=== PATIENT | female | born 1995 | race Caucasian/White ===

== ENCOUNTER → 2017-08-19 | Outpatient (CLI) | payer MEDICAID, OTHER, SELFPAY ==
[2017-08-19 13:36] LABS: BASO % 0.6 % (0.0-1.0); EOS # 0.1 10^3/uL (0.0-0.50); EOS % 1.7 % (0.0-3.0); HEMATOCRIT 39.3 % (36.0-47.0); HEMOGLOBIN 13.5 g/dl (12.0-15.5); IMMATURE GRANULOCYTE % 0.3 % (0-3.0); LYMPH # 1.9 10^3/uL (1.5-6.5); LYMPH % 27.2 % (24.0-44.0); MEAN CORPUSCULAR HEMOGLOBIN 29.2 pg (27.0-33.0); MEAN CORPUSCULAR HGB CONC 34.4 g/dl (32.0-36.5); MEAN CORPUSCULAR VOLUME 85.1 fl (80.0-96.0); MONO # 0.6 10^3/uL (0.0-0.8); MONO % 8.6 % (0.0-5.0); NEUTROPHILS # 4.3 10^3/uL (1.8-7.7); NEUTROPHILS % 61.6 % (36.0-66.0); PLATELET COUNT, AUTOMATED 245 10^3/uL (150-450); RED BLOOD COUNT 4.62 10^6/uL (4.00-5.40); RED CELL DISTRIBUTION WIDTH 12.5 % (11.5-14.5)
[2017-08-19 13:59] LABS: RUBELLA IgG QUALITATIVE IMMUNE (IMMUNE)
[2017-08-19 14:01] LABS: HBsAg Prenatal NEGATIVE (NEGATIVE)
[2017-08-19 14:27] LABS: HEPATITIS C VIRUS ABY INDEX 0.1 INDEX (<0.8)
[2017-08-19 14:28] LABS: HIV 1&2 SCREEN CENTAUR NEGATIVE (NEGATIVE)
[2017-08-19 15:14] LABS: CHLAMYDIA DNA AMPLIFICATION NEGATIVE (NEGATIVE); GC DNA AMPLIFICATION NEGATIVE (NEGATIVE)
== END ==
LOC: M SMT 09:20
DX: Z34.81 Encounter for supervision of other normal pregnancy, first trimester (principal); Z3A.11 11 weeks gestation of pregnancy
CPT/HCPCS: 86762

== ENCOUNTER → 2017-10-04 | Outpatient (CLI) | payer MEDICAID | LOC: M SMT 12:54 | DX: Z34.82 Encounter for supervision of other normal pregnancy, second trimester (principal) | CPT/HCPCS: 76811 ==

== ENCOUNTER → 2017-11-02 | Outpatient (CLI) | payer OTHER | LOC: M SMT 14:27 | DX: Z34.82 Encounter for supervision of other normal pregnancy, second trimester (principal); Z36.89 Encounter for other specified antenatal screening; Z3A.22 22 weeks gestation of pregnancy | CPT/HCPCS: 76816 ==

== ENCOUNTER → 2017-11-30 | Outpatient (CLI) | payer OTHER ==
[2017-11-30 18:41] LABS: BASO % 0.2 % (0.0-1.0); EOS # 0.1 10^3/uL (0.0-0.50); EOS % 1.2 % (0.0-3.0); HEMATOCRIT 34.8 % (36.0-47.0); HEMOGLOBIN 11.6 g/dl (12.0-15.5); IMMATURE GRANULOCYTE % 0.5 % (0-3.0); LYMPH # 1.6 10^3/uL (1.5-6.5); LYMPH % 19.9 % (24.0-44.0); MEAN CORPUSCULAR HEMOGLOBIN 28.8 pg (27.0-33.0); MEAN CORPUSCULAR HGB CONC 33.3 g/dl (32.0-36.5); MEAN CORPUSCULAR VOLUME 86.4 fl (80.0-96.0); MONO # 0.6 10^3/uL (0.0-0.8); MONO % 7.7 % (0.0-5.0); NEUTROPHILS # 5.8 10^3/uL (1.8-7.7); NEUTROPHILS % 70.5 % (36.0-66.0); PLATELET COUNT, AUTOMATED 231 10^3/uL (150-450); RED BLOOD COUNT 4.03 10^6/uL (4.00-5.40); RED CELL DISTRIBUTION WIDTH 13.1 % (11.5-14.5); WHITE BLOOD COUNT 8.2 10^3/uL (4.0-10.0)
[2017-11-30 19:05] LABS: GLUCOSE CHALLENGE TEST 1 HOUR 98 MG/DL (LESS THAN 140)
== END ==
LOC: M SMT 13:10
DX: Z34.82 Encounter for supervision of other normal pregnancy, second trimester (principal); Z36.89 Encounter for other specified antenatal screening
CPT/HCPCS: 82950

== ENCOUNTER → 2018-02-06 | Outpatient (REF) | payer MEDICAID | LOC: M LAB REF 17:28 | DX: Z34.03 Encounter for supervision of normal first pregnancy, third trimester (principal); Z36.85 Encounter for antenatal screening for Streptococcus B | CPT/HCPCS: 87081 ==

== ENCOUNTER 2018-03-06 15:25 | Inpatient (IN) | payer OTHER, MEDICAID ==
[2018-03-06] MEDS ORDERED: LR 1,000 ML IV (16:08)
[2018-03-06 17:03] LABS: HEMATOCRIT 36.6 % (36.0-47.0); HEMOGLOBIN 12.2 g/dl (12.0-15.5); MEAN CORPUSCULAR HEMOGLOBIN 26.9 pg (27.0-33.0); MEAN CORPUSCULAR HGB CONC 33.3 g/dl (32.0-36.5); MEAN CORPUSCULAR VOLUME 80.6 fl (80.0-96.0); PLATELET COUNT, AUTOMATED 292 10^3/uL (150-450); RED BLOOD COUNT 4.54 10^6/uL (4.00-5.40); RED CELL DISTRIBUTION WIDTH 13.9 % (11.5-14.5); WHITE BLOOD COUNT 10.6 10^3/uL (4.0-10.0)
[2018-03-06 17:27] LABS: ALT/SGPT 16 U/L (12-78); AST/SGOT 17 U/L (7-37); BILIRUBIN,TOTAL 0.2 MG/DL (0.2-1.0); CREATININE FOR GFR 0.53 MG/DL (0.55-1.30); GLOMERULAR FILTRATION RATE > 60.0 (>60); LDH LACTATE DEHYDROGENASE 196 U/L (84-246); URIC ACID 3.8 MG/DL (2.6-6.0)
[2018-03-06] MEDS: OXYTOCIN DRIP 30 UNITS in APPROPRIATE DILUENT 1 EA IV (17:33)
[2018-03-06] MEDS: LACTATED RINGER'S 1000 ML IV (17:33)
[2018-03-06 17:58] LABS: TOTAL PROTEIN,RANDOM URINE 13.7 MG/DL (0.0-12.0)
[2018-03-06 17:58] LABS: CREATININE,RANDOM URINE 97.7 MG/DL
[2018-03-06] MEDS: LR 1,000 ML IV (22:13)
[2018-03-07] MEDS: BUTORPHANOL 2 MG/ML INJ (J0595) IV (03:25)
[2018-03-07] MEDS: PROMETHAZINE INJ 25 MG/ML VIAL (J2550) IV (03:25)
[2018-03-07] MEDS ORDERED: MEASLES,MUMPS,RUBELLA VACCINE INJ (MMR-II) (90707) SC (07:00)
[2018-03-07] MEDS ORDERED: ANUSOL HC CREAM 30GM TOP (07:00)
[2018-03-07] MEDS ORDERED: DOCUSATE SODIUM 100 MG CAP PO (07:00)
[2018-03-07] MEDS ORDERED: IBUPROFEN 800 MG TAB PO (07:00)
[2018-03-07] MEDS ORDERED: METHYLERGONOVINE MALEATE 0.2 MG TAB PO (07:00)
[2018-03-07] MEDS ORDERED: DIBUCAINE 1% OINTMENT 30GM TOP (07:00)
[2018-03-07] MEDS ORDERED: RHOGAM 300 MCG (1500 IU) INJ (J2790) IM (07:00)
[2018-03-07] MEDS ORDERED: ACETAMINOPHEN 500 MG TAB PO (07:00)
[2018-03-07] MEDS: LIDOCAINE 1% MDV 20ML VIAL INFIL (07:00)
[2018-03-07] MEDS ORDERED: MOM 30ML SUSPENSION UDC PO (07:00)
[2018-03-07] MEDS: PRENATAL VITAMINS CHEWABLE TABLET PO (10:37)
[2018-03-08] MEDS: PRENATAL VITAMINS CHEWABLE TABLET PO (08:32)
[2018-03-09] MEDS: PRENATAL VITAMINS CHEWABLE TABLET PO (08:51)
== END 2018-03-09 10:35 | disposition home or self-care (01) | DRG 560 ==
LOC: M LDI 15:25 → M OBS 03-07 09:05
PROVIDERS: Advanced Practice Midwife
PROC: 10907ZC Drainage of Amniotic Fluid, Therapeutic from Products of Conception, Via Natural or Artificial Opening (ICD-10-PCS; 2018-03-06)
PROC: 3E033VJ Introduction of Other Hormone into Peripheral Vein, Percutaneous Approach (ICD-10-PCS; 2018-03-06)
PROC: 10E0XZZ Delivery of Products of Conception, External Approach (ICD-10-PCS; principal; 2018-03-07)
PROC: 0HQ9XZZ Repair Perineum Skin, External Approach (ICD-10-PCS; 2018-03-07)
DX: O13.4 Gestational [pregnancy-induced] hypertension without significant proteinuria, complicating childbirth (principal); O48.0 Post-term pregnancy; Z37.0 Single live birth; Z87.891 Personal history of nicotine dependence; Z3A.40 40 weeks gestation of pregnancy; O69.82X0 Labor and delivery complicated by other cord entanglement, without compression, not applicable or unspecified; O70.0 First degree perineal laceration during delivery

== ENCOUNTER → 2018-07-17 | Outpatient (REF) | payer OTHER, MEDICAID ==
[~2018-07-17] MED LIST: FIOR1CAP PO; IBUP-1114 PO; MAPA500T2 PO; PRENTAB9 PO
== END ==
LOC: M LAB REF 17:21
PROVIDERS: ATTEND Advanced Practice Midwife
DX: Z12.4 Encounter for screening for malignant neoplasm of cervix (principal)

== ENCOUNTER 2021-03-09 01:15 | Emergency (ER) | payer MEDICAID, OTHER ==
[2021-03-09 01:16] VITALS: BP 135/84
[2021-03-09] MEDS ORDERED: LEXA1TAB PO (01:36)
[2021-03-09 02:31] LABS: RSV AMPLIFICATION NEGATIVE (NEGATIVE)
== END 2021-03-09 05:57 | disposition home or self-care (01) ==
LOC: M ED 01:15
DX: U07.1 COVID-19 (principal); F41.1 Generalized anxiety disorder; F32.A Depression, unspecified; F17.200 Nicotine dependence, unspecified, uncomplicated; Z88.1 Allergy status to other antibiotic agents; Z79.899 Other long term (current) drug therapy

== ENCOUNTER → 2022-06-03 | Outpatient (CLI) | payer OTHER ==
[~2022-06-03] MED LIST changes: +LEXA1TAB PO
== END ==
LOC: M RAD 15:42
PROVIDERS: ATTEND Advanced Practice Midwife
DX: Z34.82 Encounter for supervision of other normal pregnancy, second trimester (principal); Z3A.14 14 weeks gestation of pregnancy

== ENCOUNTER → 2022-06-21 | Outpatient (CLI) | payer OTHER ==
[2022-06-21 14:57] LABS: HEMATOCRIT 38.3 % (36.0-47.0); HEMOGLOBIN 12.7 g/dl (12.0-15.5); MEAN CORPUSCULAR HEMOGLOBIN 29.1 pg (27.0-33.0); MEAN CORPUSCULAR HGB CONC 33.2 g/dl (32.0-36.5); MEAN CORPUSCULAR VOLUME 87.8 fl (80.0-96.0); PLATELET COUNT, AUTOMATED 227 10^3/uL (150-450); RED BLOOD COUNT 4.36 10^6/uL (4.00-5.40); WHITE BLOOD COUNT 7.7 10^3/uL (4.0-10.0)
[2022-06-21 15:37] LABS: HIV 1&2 SCREEN CENTAUR NEGATIVE (NEGATIVE)
[2022-06-21 15:46] LABS: HEPATITIS C VIRUS ABY INDEX < 0.0 INDEX (<0.8)
[2022-06-21 16:54] LABS: GC DNA AMPLIFICATION NEGATIVE (NEGATIVE)
== END ==
LOC: M PLALAB 10:07
PROVIDERS: ATTEND Advanced Practice Midwife
DX: Z34.82 Encounter for supervision of other normal pregnancy, second trimester (principal)

== ENCOUNTER → 2022-07-08 | Outpatient (CLI) | payer OTHER | LOC: M WHC 11:27 | PROVIDERS: ATTEND Obstetrics & Gynecology | DX: Z34.92 Encounter for supervision of normal pregnancy, unspecified, second trimester (principal); Z3A.19 19 weeks gestation of pregnancy ==

== ENCOUNTER → 2022-08-18 | Outpatient (CLI) | payer OTHER | LOC: M WHC 07:55 | PROVIDERS: ATTEND Advanced Practice Midwife | DX: Z34.92 Encounter for supervision of normal pregnancy, unspecified, second trimester (principal); Z3A.25 25 weeks gestation of pregnancy ==

== ENCOUNTER → 2022-09-09 | Outpatient (CLI) | payer OTHER ==
[2022-09-09 15:10] LABS: HEMATOCRIT 33.3 % (36.0-47.0); HEMOGLOBIN 10.8 g/dl (12.0-15.5); MEAN CORPUSCULAR HGB CONC 32.4 g/dl (32.0-36.5); MEAN CORPUSCULAR VOLUME 89.3 fl (80.0-96.0); PLATELET COUNT, AUTOMATED 219 10^3/uL (150-450); RED BLOOD COUNT 3.73 10^6/uL (4.00-5.40); WHITE BLOOD COUNT 7.4 10^3/uL (4.0-10.0)
== END ==
LOC: M PLALAB 09:44
PROVIDERS: ATTEND Advanced Practice Midwife
DX: Z34.92 Encounter for supervision of normal pregnancy, unspecified, second trimester (principal)

== ENCOUNTER → 2022-10-29 | Outpatient (REF) | payer OTHER | LOC: M SFHCWAGY 13:01 | PROVIDERS: ATTEND Specialist | DX: Z36.85 Encounter for antenatal screening for Streptococcus B (principal) ==

== ENCOUNTER 2022-11-24 00:38 | Inpatient (IN) | payer OTHER ==
[~2022-11-24] VITALS: Ht 167.6 cm; Wt 95.3 kg
[2022-11-24] MEDS ORDERED: LIDOCAINE 1% MDV 20ML VIAL INFIL PRN (01:30)
[2022-11-24] MEDS ORDERED: OXYTOCIN DRIP 30 UNITS in IV 1 EA IV PRN (01:30)
[2022-11-24 01:53] LABS: HEMATOCRIT 33.4 % (36.0-47.0); HEMOGLOBIN 10.7 g/dl (12.0-15.5); MEAN CORPUSCULAR HEMOGLOBIN 25.7 pg (27.0-33.0); MEAN CORPUSCULAR VOLUME 80.3 fl (80.0-96.0); PLATELET COUNT, AUTOMATED 261 10^3/uL (150-450); RED BLOOD COUNT 4.16 10^6/uL (4.00-5.40); WHITE BLOOD COUNT 11.2 10^3/uL (4.0-10.0)
[2022-11-24] MEDS ORDERED: ACETAMINOPHEN 500 MG TAB PO PRN (03:00)
[2022-11-24] MEDS ORDERED: DIBUCAINE 1% OINTMENT 30GM TOP PRN (03:00)
[2022-11-24] MEDS ORDERED: ACETAMINOPHEN TAB 650MG DOSE (2X325MG) PO PRN (03:00)
[2022-11-24] MEDS ORDERED: DOCUSATE SODIUM 100MG CAPSULE PO PRN (03:00)
[2022-11-24] MEDS ORDERED: IBUPROFEN 600MG TAB PO PRN (03:00)
[2022-11-24] MEDS ORDERED: RHOGAM 300MCG (1500IU) INJ IM SCH (03:00)
[2022-11-24] MEDS ORDERED: IBUPROFEN 800 MG TAB PO PRN (03:00)
[2022-11-24] MEDS ORDERED: METHYLERGONOVINE MALEATE 0.2 MG TAB PO PRN (03:00)
[2022-11-24 05:43] VITALS: BP 125/60; O2SAT 98
[2022-11-24] MEDS: PRENATAL VITAMINS CHEWABLE TABLET PO SCH (08:55)
[2022-11-24 18:00] VITALS: BP 121/70
[2022-11-25 06:00] VITALS: BP 98/53
[2022-11-25] MEDS: PRENATAL VITAMINS CHEWABLE TABLET PO SCH (09:22)
[2022-11-26] MEDS ORDERED: MEASLES,MUMPS,RUBELLA VACCINE INJ (MMR-II) SC.IMMUN ONE (09:00)
== END 2022-11-25 12:40 | disposition home or self-care (01) | DRG 560 ==
LOC: M LDO 00:38 → M LDI 01:26 → M OBS 05:24 → UNDODISIN 11-25 10:15
PROVIDERS: ADMIT Specialist; ATTEND Specialist
PROC: 10E0XZZ Delivery of Products of Conception, External Approach (ICD-10-PCS; principal; 2022-11-24)
PROC: 0HQ9XZZ Repair Perineum Skin, External Approach (ICD-10-PCS; 2022-11-24)
DX: O77.0 Labor and delivery complicated by meconium in amniotic fluid (principal); Z37.0 Single live birth; Z3A.39 39 weeks gestation of pregnancy; O70.0 First degree perineal laceration during delivery

== ENCOUNTER → 2024-06-11 | Outpatient (REF) | payer OTHER ==
[2024-06-11 17:56] LABS: BASO # 0.1 10^3/uL (0.0-0.2); BASO % 0.8 % (0.0-1.0); EOS # 0.1 10^3/uL (0.0-0.5); HEMATOCRIT 41.1 % (36.0-47.0); HEMOGLOBIN 13.3 g/dl (12.0-15.5); LYMPH # 2.4 10^3/uL (1.5-5.0); LYMPH % 40.7 % (24.0-44.0); MEAN CORPUSCULAR HEMOGLOBIN 27.8 pg (27.0-33.0); MEAN CORPUSCULAR HGB CONC 32.4 g/dl (32.0-36.5); MEAN CORPUSCULAR VOLUME 85.8 fl (80.0-96.0); MONO # 0.3 10^3/uL (0.0-0.8); MONO % 5.7 % (2.0-8.0); NEUTROPHILS % 50.5 % (36.0-66.0); PLATELET COUNT, AUTOMATED 322 10^3/uL (150-450); RED BLOOD COUNT 4.79 10^6/uL (4.00-5.40); WHITE BLOOD COUNT 5.9 10^3/uL (4.0-10.0)
[2024-06-11 18:01] LABS: ALBUMIN 3.7 G/DL (3.2-5.2); ALKALINE PHOSPHATASE 66 U/L (35-104); ALT/SGPT 26 U/L (7.0-40); AST/SGOT 16 U/L (<34); BILIRUBIN,TOTAL 0.3 MG/DL (0.3-1.2); BLOOD UREA NITROGEN 6 MG/DL (9-23); CALCIUM LEVEL 9.2 MG/DL (8.5-10.1); CARBON DIOXIDE LEVEL 28 MMOL/L (20-31); CHLORIDE LEVEL 105 MMOL/L (98-107); CHOLESTEROL LEVEL 156 MG/DL (<200); CHOLESTEROL RISK RATIO 3.11 (<5); CREATININE FOR GFR 0.59 MG/DL (0.55-1.30); GLOMERULAR FILTRATION RATE > 60.0 (>60); GLUCOSE, FASTING 82 MG/DL (60-100); HDL CHOLESTEROL 50.1 MG/DL (>40); LDL CHOLESTEROL 83.5 MG/DL (<100); NON-HDL-C 105.9 MG/DL; POTASSIUM SERUM 3.8 MMOL/L (3.5-5.1); SODIUM LEVEL 143 MMOL/L (136-145); THYROID STIMULATING HORMONE 3.117 uIU/ML (0.55-4.78); TOTAL 25(OH) VITAMIN D 11.7 NG/ML (20.0-100.0); TOTAL PROTEIN 7.5 G/DL (5.7-8.2); TRIGLYCERIDES LEVEL 112 MG/DL (<150); VITAMIN B12 LEVEL 217 PG/ML (211-911)
== END ==
LOC: M SFHCLERA 11:47
DX: F41.8 Other specified anxiety disorders (principal); E55.9 Vitamin D deficiency, unspecified; Z76.89 Persons encountering health services in other specified circumstances; Z23 Encounter for immunization

== ENCOUNTER → 2024-12-24 | Outpatient (REF) | LOC: M CAHLAB 17:44 | DX: Z32.00 Encounter for pregnancy test, result unknown (principal) ==

== ENCOUNTER → 2025-04-30 | Outpatient (REF) | payer OTHER ==
[2025-05-02 13:50] LABS: HPV APTIMA Not Detected (Not Detected)
== END ==
LOC: M SFHCWAGY 13:53
PROVIDERS: ATTEND Physician Assistant
DX: Z12.4 Encounter for screening for malignant neoplasm of cervix (principal)